=== PATIENT | male | born 1935 | race Caucasian/White ===

== ENCOUNTER 2017-06-10 20:50 | Observation (INO) | payer MEDICARE, BC ==
[2017-06-10 21:49] LABS: #Basophils 0.1 thou/uL (0.0-0.2); #Lymphocytes 2.7 thou/uL (1.20-3.40); #Monocytes 0.8 thou/uL (0.11-0.59); #Neutrophils 11.6 thou/uL (1.40-6.50); %Basophils 0.4 % (0.0-1.0); %Eosinophils 0.3 % (0.0-10.0); %Lymphocytes 17.6 % (21.0-51.0); %Monocytes 5.2 % (0.0-10.0); Hematocrit 46.6 % (42.0-52.0); Mean Platelet Volume 7.4 fL (7.4-10.4); Red Blood Cell (RBC) Count 4.91 mill/uL (4.70-6.10); White Blood Cell (WBC) Count 15.1 thou/uL (4.8-10.8)
[2017-06-10 22:13] LABS: ALT (SGPT) 13 U/L (8-55); AST (SGOT) 13 U/L (5-34); Alkaline Phosphatase 49 U/L (40-150); Anion Gap 17 mmol/L (10-20); BUN (Urea Nitrogen) 18 mg/dL (8.4-25.7); Bilirubin, Total 0.5 mg/dL (0.2-1.2); CK (CPK) 34 U/L (30-200); Calc. Creatinine Clearance 0 mL/min (70-130); Calcium 9.5 mg/dL (7.8-10.44); Carbon Dioxide 23 mmol/L (23-31); Chloride 99 mmol/L (98-107); Estimated GFR-MDRD 75; Globulin 3.3 g/dL (2.4-3.5); Protein, Total 7.4 g/dL (5.8-8.1)
[2017-06-10 22:17] LABS: Troponin I Less than 0.010 ng/mL (< 0.028)
--- NOTE | 2017-06-10 22:17 | RAD ---
TWO VIEWS OF THE CHEST: 06/10/17 COMPARISON: 07/15/13 HISTORY: Shortness of breath and nausea. FINDINGS: Two views of the chest show normal sized cardiomediastinal silhouette. There is no evidence of conso lidation, mass, or pleural effusion. Degenerative changes are seen in the spine. IMPRESSION: No evidence of acute cardiopulmonary disease. POS: [facility]
[2017-06-11] MEDS ORDERED: Ondansetron HCl/PF 4 MG/2 ML Vial IVP PRN (00:23)
[2017-06-11] MEDS ORDERED: Ondansetron ODT 4 MG TAB SL PRN (00:23)
[2017-06-11] MEDS ORDERED: Melatonin 3 MG TAB PO SCH (00:30)
[2017-06-11] MEDS ORDERED: Lorazepam 2 MG/ML VIAL SLOW IVP PRN (00:32)
[2017-06-11] MEDS ORDERED: Milk Of Magnesia 30 ML UDCUP PO PRN (00:32)
[2017-06-11] MEDS ORDERED: Mag-Al 1200 mg/1200 mg/30 ML UDCUP PO PRN (00:32)
[2017-06-11] MEDS ORDERED: Acetaminophen 325 MG TAB PO PRN (00:32)
[2017-06-11] MEDS ORDERED: Lorazepam 0.5 MG TAB PO PRN (00:35)
[2017-06-11 01:08] LABS: Troponin I Less than 0.010 ng/mL (< 0.028)
--- NOTE | 2017-06-11 05:36 | HP ---
PRIMARY CARE PHYSICIAN: Dr. Kennedy. CHIEF COMPLAINT: Chest pain. HISTORY OF PRESENT ILLNESS: Mr. Noel is an 81-year-old gentleman that has a history of hypertensi on and obstructive sleep apnea. He also has a history of bipolar disorder as well. The patient him self says that on Wednesday evening, he began getting short of breath after eating dinner. He says edmond t this lasted for about 3 hours. He did feel a little bit dizzy and nauseated. His had taken him to see Dr. Kennedy in her office and she had prescribed an inhaler, some cough Perles as well as antibiotics and steroids this was on last Wednesday a week ago. He took these medications and she say s that the cough got better and the cough was nonproductive, but he still complains of the shortness of breath off and on. He says that on today, he seemed very agitated and he just recently got rele ased from [facility] and she says that earlier this evening he said he just could not cat ch his breath and he was having trouble breathing. She says when she looked better at him, he looke d okay and like he was moving air, but she did not know anything else to do but to bring him to the hospital. She suspects that he may be having an anxiety attack. He denies having any chest pain th rough all of this. No fevers or chills, etc., When I came to see him, he is lying flat on the stre tcher. He looks very comfortable and currently is not having any shortness of breath or any symptom s at this time. REVIEW OF SYSTEMS: Constitutional: There are no fevers, chills, no night sweats, no weight loss. HEENT: No headache, no dizziness, no visual changes, no sore throat, rhinorrhea, neck pain, no kimberly opathy. Pulmonary: As the history of present illness. Cardiovascular: He denies any chest pain. He had shortness of breath in the evening times, but there was no PND, no orthopnea, no relationshi p to exertion. No lower extremity edema. Gastrointestinal: No abdominal pain, no nausea, no vomit ing, no change in bowels. Genitourinary: No urinary frequency, hematuria, no hesitancy. Neurologi c: No focal weakness, numbness, no seizures. Psychiatric: No symptoms of anxiety or depression. Skin and integument: No skin changes. No rash. PAST MEDICAL HISTORY: Significant for obstructive sleep apnea, hypertension, gastroesophageal reflu x disease, BPH, and bipolar disorder. PAST SURGICAL HISTORY: He had a cardiac catheterization. ALLERGIES: SULFA, PENICILLIN, INFLUENZA VACCINE, and STATINS. FAMILY HISTORY: Significant for coronary artery disease. SOCIAL HISTORY: He is . He lives with his . He is a nonsmoker, nondrinker. CURRENT MEDICATIONS: Include famotidine 20 mg daily, potassium chloride 20 mEq daily, Flomax 0.4 mg daily, vitamin E, calcium carbonate 500 mg twice a daily, lisinopril 10 mg daily, levothyroxine 75 mcg daily, lithium 300 mg in the day and 150 mg at bedtime, BuSpar 10 mg daily, iron sulfate 325 mg at bedtime, finasteride 5 mg daily, Haldol 1 mg in the day and 2 mg at bedtime, and amlodipine 10 mg daily. PHYSICAL EXAMINATION: GENERAL: He is alert and oriented. He appears to be in no acute distress. VITAL SIGNS: His blood pressure was 126/70, his heart rate is 86, respiratory rate is 16, and he is afebrile. HEENT: Pupils are equal, round, and reactive. Extraocular muscles are intact. Sclerae are anicter ic. Throat no erythema, no exudates. NECK: No adenopathy, no bruits. LUNGS: He has got some mild rhonchi, is very faint in few. CARDIOVASCULAR: Normal S1, S2. I did not appreciate an S3 or S4. No murmurs, clicks, or rubs. ABDOMEN: Soft, it is nontender, nondistended. Positive for bowel sounds. There is no rebound, no guarding. EXTREMITIES: There is no clubbing, cyanosis, no edema. NEUROLOGICALLY: The exam is nonfocal. SIGNIFICANT LABORATORY: White blood cell count 15.1, hemoglobin 15.2, hematocrit is 46.6, platelet count is 344. Sodium 135, potassium 4.3, chloride is 99, CO2 is 23, BUN of 18, creatinine 0.96, glu cose is 126. D-dimer is less than 0.021. [place] level was 0.342. ASSESSMENT AND PLAN: This is an 81-year-old gentleman that presents to the emergency room with shor tness of breath. He does not have any objective complaints now or any subjective complaints now and clinically, he appears well. I suspect that his may be correct by given his psychiatric histo ry. This could be an anxiety attack that caused his shortness of breath. He is currently completel y asymptomatic. His D-dimer was negative. His chest x-ray is clear and he did not have any chest p ain. We will monitor him in observation overnight, trend his cardiac enzymes, monitor his vital sig ns and if all is stable in the morning, then I suspect he can be discharged home and he may need to talk with his psychiatrist with regards to the treatment of anxiety. The leukocytosis seen on the C BC is likely related to recent steroid use.
[2017-06-11 06:07] LABS: #Basophils 0.1 thou/uL (0.0-0.2); #Eosinphils 0.2 thou/uL (0.0-0.7); #Lymphocytes 5.1 thou/uL (1.20-3.40); #Monocytes 1.1 thou/uL (0.11-0.59); #Neutrophils 10.1 thou/uL (1.40-6.50); %Basophils 0.5 % (0.0-1.0); %Lymphocytes 30.8 % (21.0-51.0); %Monocytes 6.6 % (0.0-10.0); Hematocrit 45.5 % (42.0-52.0); Mean Platelet Volume 8.3 fL (7.4-10.4); Red Blood Cell (RBC) Count 4.77 mill/uL (4.70-6.10); White Blood Cell (WBC) Count 16.6 thou/uL (4.8-10.8)
[2017-06-11 06:29] LABS: Troponin I Less than 0.010 ng/mL (< 0.028)
[2017-06-11 06:40] LABS: Anion Gap 16 mmol/L (10-20); BUN (Urea Nitrogen) 15 mg/dL (8.4-25.7); Calc. Creatinine Clearance 92 mL/min (70-130); Calcium 9.6 mg/dL (7.8-10.44); Carbon Dioxide 23 mmol/L (23-31); Chloride 98 mmol/L (98-107); Cholesterol 207 mg/dl (< 200 Desired); Estimated GFR-MDRD Greater than 90; LDL Cholesterol, Calculated 134 mg/dL
[2017-06-11] MEDS: Enoxaparin Sodium 40 MG/0.4 ML SYRINGE SC SCH (08:32)
[2017-06-11] MEDS: Tamsulosin HCl 0.4 MG CAP PO SCH (08:32)
[2017-06-11] MEDS: Ondansetron HCl/PF 4 MG/2 ML Vial SLOW IVP PRN (12:57)
--- NOTE | 2017-06-11 14:52 | PDOC.PN ---
- Subjective Encounter Start Date: 06/11/17 Encounter Start Time: 14:45 Subjective: f/u for ? dyspnea of unclear etiology. All studies negative and -: presentation likely consistent with anxiety disorder. - Objective Resuscitation Status: Resuscitation Status FULL:Full Resuscitation MAR Reviewed: Yes Vital Signs & Weight: Vital Signs (12 hours) Temp Pulse Resp BP BP Pulse Ox 06/11/17 11:25 98.5 F 86 18 119/64 93 L 06/11/17 08:30 97.8 F 84 18 127/68 93 L 06/11/17 04:30 98.7 F 90 20 130/67 94 L Weight Weight 197 lb 11.2 oz I&O: 06/10/17 06/11/17 06/12/17 06:59 06:59 06:59 Output Total 300 Balance -300 Result Diagrams: 06/11/17 04:18 06/11/17 04:18 Additional Labs: Laboratory Tests 06/10/17 06/10/17 06/11/17 21:41 22:10 00:32 Troponin I Less than 0.010 Less than 0.010 Free T4 TSH 3rd Generation Richardson 0.342 L 06/11/17 06/11/17 04:18 04:18 Troponin I Less than 0.010 Free T4 1.33 TSH 3rd Generation 1.2951 Richardson Radiology Reviewed by me: Yes (PCXR - no acute process) EKG Reviewed by me: Yes (Tele - SR in 90's) Phys Exam - Physical Examination Constitutional: NAD HEENT: PERRLA, oral pharynx no lesions Neck: no JVD, supple Respiratory: no wheezing Cardiovascular: RRR Gastrointestinal: soft, non-tender, no distention, positive bowel sounds Musculoskeletal: no edema, pulses present Neurological: normal sensation, moves all 4 limbs Psychiatric: A&O x 3 Skin: normal turgor, cap refill <2 seconds Dx/Plan (1) Anxiety disorder Code(s): F41.9 - ANXIETY DISORDER, UNSPECIFIED Status: Chronic Qualifiers: Anxiety disorder type: generalized anxiety disorder Qualified Code(s): F41.1 - Generalized anxiety disorder (2) Bipolar disorder (manic depression) Code(s): F31.9 - BIPOLAR DISORDER, UNSPECIFIED Status: Chronic Comment: Continue home regimen of Richardson, Buspar (3) Dyspnea Code(s): R06.00 - DYSPNEA, UNSPECIFIED Status: Acute Comment: Likely due to anxiety disorder (4) Hypothyroidism Code(s): E03.9 - HYPOTHYROIDISM, UNSPECIFIED Status: Chronic Comment: Levothyroxine 75mcg daily (5) HTN (hypertension) Code(s): I10 - ESSENTIAL (PRIMARY) HYPERTENSION Status: Chronic - Plan plan discussed w/ family, PT/OT, DVT proph w/SCDs Stable overall -: Likely presentation mainly anxiety driven -: PT consult for functional assessment -: Continue home Richardson and Buspar -: Anticipate d/c in am * .
[2017-06-11] MEDS: busPIRone HCl 10 MG TAB PO SCH ×2 (15:51→20:55)
[2017-06-11] MEDS ORDERED: Haloperidol 1 MG TAB PO SCH (21:00)
[2017-06-11] MEDS ORDERED: Lithium Carbonate 150 MG CAP PO SCH (21:00)
[2017-06-12] MEDS: Ondansetron HCl/PF 4 MG/2 ML Vial SLOW IVP PRN ×2 (01:29→07:40)
[2017-06-12] MEDS ORDERED: Levothyroxine Sodium 75 MCG TAB PO SCH (06:00)
[2017-06-12 06:17] VITALS: BMI 30.7
[2017-06-12] MEDS ORDERED: Ferrous Sulfate 325 MG TAB PO SCH (08:00)
[2017-06-12] MEDS ORDERED: Potassium Chloride 20 MEQ TAB PO SCH (08:00)
[2017-06-12] MEDS ORDERED: Lisinopril 10 MG TAB PO SCH (09:00)
[2017-06-12] MEDS ORDERED: Finasteride 5 MG TAB PO SCH (09:00)
[2017-06-12] MEDS ORDERED: Lithium Carbonate 150 MG CAP PO SCH (09:00)
[2017-06-12] MEDS ORDERED: Haloperidol 1 MG TAB PO SCH (09:00)
[2017-06-12] MEDS ORDERED: Multivit, Therapeutic 1 TAB PO SCH (09:00)
[2017-06-12] MEDS: busPIRone HCl 10 MG TAB PO SCH (10:07)
[2017-06-12] MEDS: Tamsulosin HCl 0.4 MG CAP PO SCH (10:08)
[2017-06-12] MEDS: Enoxaparin Sodium 40 MG/0.4 ML SYRINGE SC SCH (10:08)
[2017-06-12 11:30] VITALS: BP 117/83; TEMP 98.5
--- NOTE | 2017-06-12 15:48 | DIS ---
DATE OF ADMISSION: 06/10/2017 DATE OF DISCHARGE: 06/12/2017 DISCHARGE DIAGNOSES: 1. Generalized anxiety disorder. 2. Bipolar disorder. 3. Dyspnea secondary to anxiety. 4. Hypothyroidism, stable. 5. Hypertension, stable. CONSULTATIONS: None. PERTINENT LABORATORY DATA AND X-RAY FINDINGS: Basic metabolic profile within normal limits. LFTs w ithin normal limits. Troponin I negative x3. Total cholesterol 207, triglycerides 89, HDL 55, LDL 134. TSH 1.3, free T4 of 1.33. CBC showed a white blood cell count ranging between 15.1-16.6. Lit hium level 0.342. Portable chest x-ray dated 06/10/2017 showed no acute cardiopulmonary process. HOSPITAL COURSE: Patient was observed on the telemetry unit after initially presenting with questio nable chest pain and shortness of breath. Patient underwent an extensive evaluation including metab olic screening, essentially all negative. Patient was noted with mild leukocytosis secondarily to r ecent prescription for prednisone. Telemetry monitoring showed sinus mechanism without evidence of acute arrhythmia or dysrhythmia, and patient remained clinically stable throughout the hospital cour se. Patient's presentation consistent with anxiety disorder and may need additional evaluation on a n ongoing basis as an outpatient. Overall, patient remained clinically stable and ready for dischar on 06/12/2017. DISCHARGE MEDICATIONS: 1. Calcium carbonate 500 mg 1 tab p.o. daily. 2. Pepcid 20 mg 1 tab p.o. daily. 3. Ferrous sulfate 325 mg p.o. daily. 4. Finasteride 5 mg one tablet p.o. daily. 5. Haldol 1 mg p.o. q.a.m. and 2 mg p.o. at bedtime. 6. Levothyroxine 75 mcg 1 tab p.o. daily. 7. Lisinopril 10 mg 1 tab p.o. daily. 8. [place] carbonate 300 mg p.o. q.a.m. and 150 mg p.o. at bedtime. 9. Multivitamin 1 tab p.o. daily. 10. K-Dur 20 mEq one tab p.o. daily. 11. Flomax 0.4 mg 1 tab p.o. daily. 12. Amlodipine 10 mg one tab p.o. daily. 13. BuSpar 10 mg 1 tab p.o. t.i.d. FOLLOWUP: Patient will follow with Dr. Rhonda Kennedy within 7 days of discharge. CONDITION ON DISCHARGE: Fair. ACTIVITY: Ad fabrice. DIET: Heart healthy. CODE STATUS: FULL. DISPOSITION: Home on 06/12/2017.
== END 2017-06-12 14:22 | disposition home or self-care (01) ==
LOC: ERS 20:50 → 2NO 23:00
PROVIDERS: ADMIT Internal Medicine; ATTEND Internal Medicine
DX: F41.1 Generalized anxiety disorder (principal); R06.00 Dyspnea, unspecified; F31.9 Bipolar disorder, unspecified; E03.9 Hypothyroidism, unspecified; I10 Essential (primary) hypertension; G47.33 Obstructive sleep apnea (adult) (pediatric); K21.9 Gastro-esophageal reflux disease without esophagitis; N40.0 Benign prostatic hyperplasia without lower urinary tract symptoms; Z88.2 Allergy status to sulfonamides; Z88.0 Allergy status to penicillin; Z88.8 Allergy status to other drugs, medicaments and biological substances; Z79.899 Other long term (current) drug therapy
CPT/HCPCS: 71020; 80048; 80053; 80061; 80178; 82550; 82553; 83690; 84439; 84443; 84484 ×3; 85025 ×2; 85379; 93005; 96372 ×2; 96374; 96376 ×2; 99285; G0378; G8978; G8979; G8980; 36415; A4216; J1650; J2405

== ENCOUNTER 2017-07-07 07:15 | Emergency (ER) | payer MEDICARE, BC ==
[2017-07-07] MEDS ORDERED: Morphine Sulfate 2 MG/ML SYRINGE ONE (07:53)
[2017-07-07] MEDS ORDERED: Ondansetron HCl/PF 4 MG/2 ML Vial ONE (07:53)
[2017-07-07 07:57] LABS: #Eosinphils 0.3 thou/uL (0.0-0.7); #Lymphocytes 2.8 thou/uL (1.20-3.40); #Monocytes 0.9 thou/uL (0.11-0.59); %Basophils 0.5 % (0.0-1.0); %Eosinophils 3.7 % (0.0-10.0); %Lymphocytes 31.1 % (21.0-51.0); %Monocytes 9.5 % (0.0-10.0); Hematocrit 45.8 % (42.0-52.0); Mean Platelet Volume 7.6 fL (7.4-10.4); Red Blood Cell (RBC) Count 4.86 mill/uL (4.70-6.10)
[2017-07-07 08:21] LABS: ALT (SGPT) 10 U/L (8-55); AST (SGOT) 12 U/L (5-34); Alkaline Phosphatase 45 U/L (40-150); Anion Gap 12 mmol/L (10-20); BUN (Urea Nitrogen) 12 mg/dL (8.4-25.7); Bilirubin, Total 0.7 mg/dL (0.2-1.2); Calc. Creatinine Clearance 0 mL/min (70-130); Calcium 9.4 mg/dL (7.8-10.44); Carbon Dioxide 26 mmol/L (23-31); Chloride 101 mmol/L (98-107); Estimated GFR-MDRD 84; Lipase 18 U/L (8-78); Protein, Total 7.1 g/dL (5.8-8.1)
--- NOTE | 2017-07-07 09:47 | CT ---
CT ABDOMEN WITH IV CONTRAST CT PELVIS WITH IV CONTRAST: HISTORY: Intermittent abdominal pain that began 1 day ago. Numbness and cramping. COMPARISON: None available. FINDINGS: The dome of the liver is obscured from view on this exam. There is bibasilar atelectasis. There is mass-like area of increased density seen posteriorly within the fundus of the gallbladder l umen with this area measuring approximately 2.2 cm. This could be related to gallbladder calculi la yering in the fundus of the gallbladder and/or sludge. A mass could not be entirely excluded, and a gallbladder ultrasound is recommended for further evaluation. The visualized portions of the liver, spleen, pancreas, bilateral adrenal glands, kidneys, opacified bowel, and urinary bladder demonstrate a normal CT appearance. The appendix is normal in caliber. A few scattered colonic diverticula are seen in the colon without CT evidence of diverticulitis. Small fat-containing bilateral inguinal hernias are seen. Mild degenerative changes are noted in the spine. IMPRESSION: Area of increased density within the gallbladder fundus. This has a mass-like appearance but may be related to layering gallbladder calculi and/or tumefactive sludge. Gallbladder ultrasound is recom mended for further evaluation. POS: [facility]
[2017-07-07 10:03] LABS: Bilirubin Negative (Negative); Blood, Urine Negative (Negative); Glucose, Urine (Dipstick) Negative (Negative); Ketone, Urine Negative (Negative); Nitrite Negative (Negative); Protein, Urine (Dipstick) Negative (Neg-Trace); Urobilinogen 0.2 mg/dL (0.2-1.0)
--- NOTE | 2017-07-07 11:55 | ULT ---
GALLBLADDER ULTRASOUND: HISTORY: Abnormal CT. Abdominal pain. History of gallbladder calculi. COMPARISON: 07/01/2013 CORRELATION: Abdomen and pelvis CT from 07/07/2017. TECHNIQUE: Utilizing a Multi-Hertz transducer, sonographic imaging of the right upper quadrant is performed in the longitudinal and transverse plane. FINDINGS: The hepatic parenchyma has a normal echotexture. No hepatic masses or intrahepatic biliary dilatati on. The contour of the hepatic margin is maintained. The right pedicle measures 16.6 cm. Limited evaluation of the right kidney. Grossly, no hydronephrosis. At the gallbladder fundus, there appears to be a combination of hypoechoic and increased echogenic f oci. This collection measures approximately 1.8 cm. When the patient is rolled into the decubitus position, the sludge and stone do move. An obvious intraluminal mass is not appreciated. If there is concern, MRI can be performed. The pancreas is obscured by bowel gas. The main portal vein is patent. Appropriate directional flow. IMPRESSION: Sonographic evidence of sludge and stones within the lumen of the gallbladder. In the transverse di mension, this collection has a mass-like appearance, but, in the left lateral decubitus position, th e sludge and stones do appear to be moved. If there is still concern for a mass within the lumen of the gallbladder, consider MRI POS: [facility]
[2017-07-07] MEDS ORDERED: ISOVUE-370 76%-LOCM 1 ML ONE (13:27)
[2017-07-07] MEDS ORDERED: Iopamidol 370 76% 50 ML VIAL FS ONE (13:27)
== END 2017-07-07 12:00 | disposition home or self-care (01) ==
LOC: ERS 07:15
DX: K80.20 Calculus of gallbladder without cholecystitis without obstruction (principal); E03.9 Hypothyroidism, unspecified; K21.9 Gastro-esophageal reflux disease without esophagitis; I10 Essential (primary) hypertension; N40.0 Benign prostatic hyperplasia without lower urinary tract symptoms; D64.9 Anemia, unspecified; F31.9 Bipolar disorder, unspecified; Z79.899 Other long term (current) drug therapy
CPT/HCPCS: 74177; 76705; 80053; 81003; 83690; 85025; 96374; 96375; J2270; J2405

== ENCOUNTER 2017-07-08 12:32 | Outpatient (CLI) | payer MEDICARE, BC | END 2017-07-08 12:33 | disposition home or self-care (01) | LOC: LABBT 12:32 | PROVIDERS: ATTEND Specialist | DX: Z01.818 Encounter for other preprocedural examination (principal); K80.10 Calculus of gallbladder with chronic cholecystitis without obstruction ==

== ENCOUNTER 2017-07-09 09:27 | Day surgery (SDC) | payer MEDICARE, BC ==
[2017-07-08 12:57] VITALS: BMI 31.1
--- NOTE | 2017-07-09 05:42 | HP ---
HISTORY OF PRESENT ILLNESS: Konrad Noel is an 81-year-old male patient who presented to the emergen cy room on 07/07/2017 with epigastric right upper quadrant pain associated with nausea occurring for several months intermittently worsening. He has suffered anorexia. Gallbladder ultrasound reveale d gallstones and sludge, and normal bile duct caliber. On 07/07/2017, laboratories, CBC and compreh ensive metabolic profile unremarkable, normal liver function tests and lipase. Plan is for laparosc opic cholecystectomy. Risks of infection, bleeding, reoperation explained and he consents. The patient has seen Dr. Luke recently. He has been taken off his Flomax. He has been hospi talized at [facility] and thought to have bipolar illness or anxiety, but since has been taken off lithium and Haldol. He is treated for hypertension and BPH. He has never had an y cardiac problems. He has had a colonoscopy in the past. 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 PAST SURGICAL HISTORY: Tonsillectomy, adenoidectomy. REVIEW OF SYSTEMS: Ten-point noncontributory. MEDICATIONS: Finasteride 5 mg a day, Flomax 0.4 mg a day, buspirone 10 mg t.i.d. His levothyroxine has been discontinued. Amlodipine 10 mg a day, lisinopril 10 mg a day. PAST MEDICAL HISTORY: Hypertension, gastroesophageal reflux disease, hearing impaired, Parkinson's, BPH, depression. He has been diagnosed dementia with behavioral disturbance. He does not have bip olar, anxiety disorder, but taken off his medications as later consideration felt this was not an is marques. ALLERGIES: PENICILLIN, STATIN DRUGS, BACTRIM, COQ10, LITHIUM. PHYSICAL EXAMINATION: VITAL SIGNS: Weight 200 pounds, height 64 inches, 33 BMI, blood pressure 115/81, heart rate 81, tem perature 98.8 degrees. HEAD, EYES, EARS, NOSE AND THROAT: Unremarkable. Sclerae nonicteric. SKIN: Nonjaundiced. LUNGS: Clear to auscultation. No wheezing. CARDIAC: Regular rate and rhythm without murmur or gallop. ABDOMEN: Soft, nontender, no masses. Mild tenderness in his right upper quadrant. EXTREMITIES: Unremarkable. ASSESSMENT AND PLAN: 1. Symptomatic cholelithiasis. Plan laparoscopic video cholecystectomy. Risks of infection, bleed ing, visceral and biliary injury, possibly open procedure discussed and consents. 2. Dementia. 3. Hypertension. 4. Benign prostatic hypertrophy.
[2017-07-09] MEDS ORDERED: Levofloxacin 500 mg/D5W 100 ml Premix Bag ONE (09:58)
[2017-07-09] MEDS ORDERED: Ketorolac Tromethamine 30 MG/ML VIAL ONE (09:58)
[2017-07-09] MEDS ORDERED: Bupivacaine 0.25% HCL 30 ML VIAL ONE (11:32)
[2017-07-09] MEDS ORDERED: Lidocaine 2% w/Epinephrine 1:200K 20 ML VIAL ONE (11:32)
[2017-07-09] MEDS ORDERED: Fentanyl 250 MCG/5 ML VIAL ONE (11:39)
[2017-07-09] MEDS ORDERED: Ondansetron HCl/PF 4 MG/2 ML Vial ONE (12:04)
[2017-07-09] MEDS ORDERED: Propofol 200 MG/20 ML VIAL ONE (12:04)
[2017-07-09] MEDS ORDERED: Dexamethasone 20 MG/5 ML VIAL ONE (12:04)
[2017-07-09] MEDS ORDERED: Lidocaine 1% PF 5 ML VIAL ONE (12:04)
[2017-07-09] MEDS ORDERED: Glycopyrrolate 0.2 MG/ML 5 ML SYRINGE ONE (12:04)
[2017-07-09] MEDS ORDERED: Fentanyl 100 MCG/2 ML VIAL ONE ×2 (13:15→13:31)
--- NOTE | 2017-07-09 13:49 | OP ---
DATE OF PROCEDURE: 07/09/2017 PREOPERATIVE DIAGNOSIS: Chronic cholecystitis, cholelithiasis. POSTOPERATIVE DIAGNOSIS: Chronic cholecystitis, cholelithiasis. PROCEDURE: Laparoscopic video cholecystectomy. SURGEON: Dr. Hermes Tan ANESTHESIA: General. Local 0.5% Marcaine again, 30 mL, mixed with 2% Xylocaine with epinephrine 20 mL. PROCEDURE IN DETAIL: The patient was taken to the operating room where under general anesthesia, ab domen was clipped of hair, prepared with ChloraPrep, draped in routine fashion. Local anesthetic in filtrated into skin and subcutaneous tissue about the operative sites. Infraumbilical incision made and pneumoperitoneum to 15 mmHg obtained with the Veress needle, replacing it with a 5 port. Video laparoscope inserted. Right subxiphoid incision made and 11 port placed. Right subcostal incision made mid clavicular anterior axillary lines and 5 ports placed. Liver appeared to be normal. Omen hilaria stuck to the liver, taken down with cautery, identifying the fundus of the gallbladder, grasping it and reflecting it cephalad, infundibulum grasped and reflected laterally. Cystic artery and lopez t dissected free. Critical view obtained 2/3 cystic plate dissection and cystic artery and duct biju coral clipped proximally, divided, and gallbladder dissected free from the liver bed obtaining good he mostasis prior to division of final peritoneal attachments. Gallbladder and contents and small ston es removed and submitted to Pathology. Good hemostasis ensured with the cautery. Irrigant and pneu moperitoneum evacuated. All instruments removed and all skin incisions approximated with interrupte d subdermal 4-0 Monocryl and DermaGlue applied.
== END 2017-07-09 14:55 | disposition home or self-care (01) ==
LOC: SDC 09:27
PROVIDERS: ATTEND Specialist
PROC: 0FT44ZZ Resection of Gallbladder, Percutaneous Endoscopic Approach (ICD-10-PCS; principal; 2017-07-09)
DX: K80.10 Calculus of gallbladder with chronic cholecystitis without obstruction (principal); I10 Essential (primary) hypertension; K21.9 Gastro-esophageal reflux disease without esophagitis; G20 Parkinson's disease; N40.0 Benign prostatic hyperplasia without lower urinary tract symptoms; F03.91 Unspecified dementia, unspecified severity, with behavioral disturbance; Z88.0 Allergy status to penicillin; Z88.1 Allergy status to other antibiotic agents; Z88.2 Allergy status to sulfonamides; Z88.8 Allergy status to other drugs, medicaments and biological substances; Z79.899 Other long term (current) drug therapy; Z90.89 Acquired absence of other organs
CPT/HCPCS: 88304; 96374; J0131; J1100; J1885; J1956; J2001; J2405; J2704; J3010; S0020

== ENCOUNTER 2018-03-01 14:31 | Outpatient (CLI) | payer MEDICARE, BC | END 2018-03-01 14:32 | disposition home or self-care (01) | LOC: BICRAD 14:31 | PROVIDERS: ATTEND Family Medicine | DX: R05 Cough (principal); R06.02 Shortness of breath | CPT/HCPCS: 71046 ==

== ENCOUNTER 2018-08-24 14:57 | Outpatient (CLI) | payer MEDICARE, BC ==
--- NOTE | 2018-08-24 17:54 | CT ---
CT ABDOMEN WITH AND WITHOUT CONTRAST CT PELVIS WITH AND WITHOUT CONTRAST: (CT urogram) 08/24/18 HISTORY: 82-year-old male with hematuria. COMPARISON: Standard single phase CT with contrast of 07/07/17. TECHNIQUE: Precontrast scan, nephrographic/venous phase scan, and pyelographic/excretory phase scan, of the enti re abdomen and pelvis performed. Coronal reconstructions of excretory/pyelographic phase scan. FINDINGS: Again noted is the elevated right hemidiaphragm. There is chronic subsegmental atelectasis adjacent t o the elevated right hemidiaphragm in the right lower lobe. There are no renal, ureteral, or bladder calculi. Numerous tiny cellules throughout the mucosal surface of the urinary bladder as demonstrated on the delayed scan images, without significant bladder wall thickening, and with small bladder volu me at the time of this exam (smaller than at the time of the previous scan). No obvious neoplastic tu mor mass identified in the bladder lumen. No hydroureteronephrosis bilaterally. No moderate sized or large solid or cystic renal mass lesion identified. Bilateral nephrograms are symmetrical and normal. Atherosclerotic calcification without aneurysm of abdominal aorta and iliac arteries. Cholecystectomy clips in gallbladder fossa. No evidence of acute appendicitis. Other than the superior displacement of the liver due to elevated right hemidiaphragm, no other abnormality is identified involving the li kat, pancreas, adrenals, or spleen. Numerous diverticula throughout the descending colon and sigmoid colon without definite evidence of diverticulitis. No ascites or pneumoperitoneum. No small bowel dil ation. No intra-abdominal or intrapelvic lymphadenopathy. No destructive osseous lesion identified. T he prostate gland is not significantly enlarged. IMPRESSION: 1. Diffuse irregularity of the mucosal lining of the urinary bladder suggestive of a cystitis, e ither acute or chronic. 2. No significant renal abnormality identified. 3. Colonic diverticulosis. 4. Elevated right hemidiaphragm. 5. Status post cholecystectomy. POS: [facility]
== END 2018-08-24 14:58 | disposition home or self-care (01) ==
LOC: BICCT 14:57
PROVIDERS: ATTEND Urology
DX: R31.29 Other microscopic hematuria (principal); N40.1 Benign prostatic hyperplasia with lower urinary tract symptoms; N32.89 Other specified disorders of bladder; K57.30 Diverticulosis of large intestine without perforation or abscess without bleeding; Q79.1 Other congenital malformations of diaphragm; Z90.49 Acquired absence of other specified parts of digestive tract; Z87.448 Personal history of other diseases of urinary system
CPT/HCPCS: 74178; 82565

== ENCOUNTER 2018-08-30 18:29 | Emergency (ER) | payer MEDICARE, BC ==
[2018-08-30 19:09] LABS: #Basophils 0.1 thou/uL (0.0-0.2); #Eosinphils 0.3 thou/uL (0.0-0.7); #Lymphocytes 3.1 thou/uL (1.20-3.40); #Neutrophils 6.3 thou/uL (1.40-6.50); %Basophils 1.3 % (0.0-1.0); %Eosinophils 2.4 % (0.0-10.0); %Lymphocytes 28.8 % (21.0-51.0); %Neutrophils 58.5 % (42.0-75.0); Hemoglobin 15.6 g/dL (14.0-18.0); Mean Corpuscular HGB CONC 33.8 g/dL (32.0-36.0); Mean Corpuscular Hemoglobin 32.1 pg (27.0-31.0); Mean Corpuscular Volume 94.8 fL (78.0-98.0); Mean Platelet Volume 9.8 fL (7.4-10.4); Platelet Count 210 thou/uL (130-400); RBC Distribution Width 12.2 % (11.5-14.5); Red Blood Cell (RBC) Count 4.87 mill/uL (4.70-6.10); White Blood Cell (WBC) Count 10.8 thou/uL (4.8-10.8)
[2018-08-30 19:32] LABS: ALT (SGPT) 42 U/L (8-55); AST (SGOT) 58 U/L (5-34); Albumin 4.3 g/dL (3.4-4.8); Alkaline Phosphatase 74 U/L (40-150); Anion Gap 15 mmol/L (10-20); BUN (Urea Nitrogen) 15 mg/dL (8.4-25.7); Bilirubin, Total 0.8 mg/dL (0.2-1.2); CK (CPK) 55 U/L (30-200); Calc. Creatinine Clearance 0 mL/min (70-130); Calcium 9.6 mg/dL (7.8-10.44); Carbon Dioxide 24 mmol/L (23-31); Chloride 102 mmol/L (98-107); Estimated GFR-MDRD 69; Globulin 3.7 g/dL (2.4-3.5); Glucose 161 mg/dL (83-110); Potassium 4.1 mmol/L (3.5-5.1); Sodium 137 mmol/L (136-145)
[2018-08-30 21:03] LABS: Bilirubin Negative (Negative); Blood, Urine Negative (Negative); Clarity CLEAR (Clear); Glucose, Urine (Dipstick) Negative (Negative); Leukocyte Negative (Negative); Nitrite Negative (Negative); Protein, Urine (Dipstick) Negative (Neg-Trace); Specific Gravity, Urine 1.024 (1.002-1.036)
--- NOTE | 2018-08-30 21:03 | RAD ---
UPRIGHT PORTABLE CHEST ONE VIEW: HISTORY: An 82-year-old male with a history of weakness, sleepiness, and unable to bear weight, with worsening symptoms. FINDINGS: Monitor leads overly the chest. Minimal right hemidiaphragm elevation with some minimal subsegmental atelectatic changes or chronic changes in the right base. Mild bilateral vascular congestion. No c onfluent pneumonia, overt edema, or pleural effusion. IMPRESSION: 1. Stable appearing chest. 2. No significant new process. POS: [facility]
--- NOTE | 2018-08-30 21:10 | CT ---
BRAIN CT WITHOUT IV CONTRAST: 08/30/18 HISTORY: 82-year-old male with history of hypertension and hypothyroidism. Generalized weakness, dementia. There is some bilateral atrophy and chronic white matter ischemic change. No focal mass or midline sh ift. No intra or extra-axial hemorrhage. Sinuses and mastoids are clear. IMPRESSION: Atrophy and chronic white matter ischemic changes. No mass, bleed or other acute process. Stable from 06/30/13. POS: [facility]
== END 2018-08-30 22:45 | disposition home or self-care (01) ==
LOC: ERS 18:29
DX: R53.1 Weakness (principal); R94.5 Abnormal results of liver function studies; E03.9 Hypothyroidism, unspecified; K21.9 Gastro-esophageal reflux disease without esophagitis; I10 Essential (primary) hypertension; N40.0 Benign prostatic hyperplasia without lower urinary tract symptoms; D64.9 Anemia, unspecified; F31.9 Bipolar disorder, unspecified; Z79.899 Other long term (current) drug therapy
CPT/HCPCS: 70450; 71045; 80053; 80164; 81003; 82550; 83880; 84484; 85025; 87086; 93005

== ENCOUNTER 2018-09-05 09:06 | Inpatient (IN) | payer MEDICARE, BC ==
[2018-09-05] MEDS ORDERED: Ondansetron PF 4 MG/2 ML Vial ONE ×2 (09:44→20:46)
--- NOTE | 2018-09-05 10:04 | RAD ---
LEFT HIP 2 VIEWS: Date: 09/05/18 HISTORY: Fall. Pain. COMPARISON: None. FINDINGS: There is a mildly impacted intertrochanteric fracture of the left femur. There is cortical irregulari ty of the left obturator ring. IMPRESSION: 1. Fracture left femur. 2. Mild cortical irregularity of the obturator ring involving the left superior pubic ramus. Pelvic radiograph recommended. POS: [facility]
--- NOTE | 2018-09-05 10:06 | RAD ---
CHEST 1 VIEW: Date: 09/05/18 HISTORY: Preop. COMPARISON: Radiograph dated 08/30/18. FINDINGS: Mild elevation of right hemidiaphragm. Lungs are hypoinflated with vascular crowding. Cardiac silhoue tte and mediastinal contours are similar. No acute osseous abnormality. Right upper quadrant surgical clips. IMPRESSION: No acute intrathoracic abnormality. POS: [facility]
[2018-09-05] MEDS ORDERED: Morphine 4 MG/ML VIAL ONE ×2 (10:07→10:47)
[2018-09-05 10:23] LABS: INR-International Normal Ratio 1.1; PTT 26.3 SEC (22.9-36.1); Prothrombin Time 14.2 SEC (12.0-14.7)
[2018-09-05 10:25] LABS: #Eosinphils 0.1 thou/uL (0.0-0.7); #Lymphocytes 2.4 thou/uL (1.20-3.40); #Neutrophils 8.9 thou/uL (1.40-6.50); %Basophils 0.3 % (0.0-1.0); %Eosinophils 1.1 % (0.0-10.0); %Lymphocytes 18.9 % (21.0-51.0); %Monocytes 8.1 % (0.0-10.0); %Neutrophils 71.6 % (42.0-75.0); Hemoglobin 14.2 g/dL (14.0-18.0); Mean Corpuscular Hemoglobin 30.6 pg (27.0-31.0); Mean Corpuscular Volume 92.8 fL (78.0-98.0); Mean Platelet Volume 9.5 fL (7.4-10.4); Platelet Count 206 thou/uL (130-400); RBC Distribution Width 12.1 % (11.5-14.5); Red Blood Cell (RBC) Count 4.66 mill/uL (4.70-6.10); White Blood Cell (WBC) Count 12.4 thou/uL (4.8-10.8)
[2018-09-05 10:43] LABS: ALT (SGPT) 51 U/L (8-55); AST (SGOT) 61 U/L (5-34); Alkaline Phosphatase 65 U/L (40-150); Anion Gap 19 mmol/L (10-20); BUN (Urea Nitrogen) 11 mg/dL (8.4-25.7); Calc. Creatinine Clearance 0 mL/min (70-130); Calcium 9.6 mg/dL (7.8-10.44); Carbon Dioxide 18 mmol/L (23-31); Chloride 100 mmol/L (98-107); Estimated GFR-MDRD 76; Globulin 3.5 g/dL (2.4-3.5); Glucose 164 mg/dL (83-110); Potassium 3.8 mmol/L (3.5-5.1); Protein, Total 7.5 g/dL (5.8-8.1); Sodium 133 mmol/L (136-145)
--- NOTE | 2018-09-05 10:43 | RAD ---
PELVIS ONE VIEW: History: Injury. Comparison: None. FINDINGS: There is an intertrochanteric fracture of the left femur with mild impaction. No left obturator ring fracture. Moderate vascular calcification. IMPRESSION: No displaced left obturator ring fracture is appreciated. POS: [facility]
[2018-09-05] MEDS ORDERED: Clindamycin/D5W 900 MG in Premix Bag 1 BAG IVPB SCH (11:15)
--- NOTE | 2018-09-05 12:41 | CON ---
DATE OF CONSULTATION: 09/05/2018 REQUESTING PHYSICIAN: Trauma Services. CONSULTING PHYSICIAN: Crow Jett MD REASON FOR CONSULTATION: Status post fall with left hip fracture. HISTORY OF PRESENT ILLNESS: This is an 82-year-old gentleman, who was at home today when he got up from his recliner and tripped on his blanket and fell, landing on his left side. He presented to the [facility], where x-rays revealed an isolated left hip intertrochanteric fracture. The patient denies hitting his head or losing consciousness. He denies any other injuries at the time of the fall. Family is currently at bedside. He reports pain that is worse with movement and relieved with rest. No numbness or tingling distally. We have been consulted for this reason. PAST MEDICAL HISTORY: Significant for hypothyroidism, gastroesophageal reflux disease, hypertension, benign prostatic hypertrophy, anemia, bipolar disorder, depression, and dementia. PAST SURGICAL HISTORY: Significant for tonsillectomy. SOCIAL HISTORY: The patient lives at home with his . He uses a walker to get around the house occasionally. He denies any alcohol use, tobacco use, or illicit drug use. ALLERGIES: INCLUDE LITHIUM, PENICILLINS, STATINS, SULFA, AND THE INFLUENZA VACCINE. FAMILY HISTORY: Reviewed and noncontributory. REVIEW OF SYSTEMS: Ten-point review of systems conducted and otherwise negative except for stated above. PHYSICAL EXAMINATION: VITAL SIGNS: Show vital signs of blood pressure 147/85, pulse of 90, respiratory rate of 16, temperature 98.2 Fahrenheit, and O2 saturation 93% on room air. GENERAL: The patient is awake and alert. He converses appropriately. He is in no apparent distress. Family is at bedside. HEENT: Head is normocephalic, atraumatic. NECK: Supple. Trachea midline. LUNGS: Breathing nonlabored. EXTREMITIES: The left lower extremity was evaluated. It does appear somewhat shortened. Tenderness to palpation in the trochanteric region. The patient is able to move all digits of his toes and reports sensation intact distally. Dorsalis pedis pulse 2+ and present. Remainder of extremity exam is unremarkable for other signs of injury. RADIOGRAPHIC FINDINGS: Including pelvis and hip x-rays show evidence of an intertrochanteric femur fracture on the left. There is some displacement present with this. These x-ray findings were reviewed with Dr. Jett as well as myself today. LABORATORY DATA: Shows a CBC with a white blood cell count of 12.4, hemoglobin 14.2, hematocrit 43.2, and platelet count of 206. ASSESSMENT: Left hip intertrochanteric femur fracture. PLAN: Options discussed today with the patient and his family. The patient is an ambulator at home with his . He does occasionally use a walker. They do use home health traditions therapy. In order to restore his mobility and preserve function of his hip, we would like to go forward with surgery including a DHS to the left intertrochanteric femur fracture. The patient has been n.p.o. since early this morning when he had a couple of sips of water. He has had nothing to eat today. Risks, benefits, and alternatives of surgery were discussed at length with the patient and his family today. They do verbalize understanding and are amenable to go forward with this plan of care. Postoperatively, we will have the patient screened to see if he is a candidate for rehab, if not we will plan for snf. Family is on board with this plan of care. We will plan for surgery later this afternoon. Job ID: [id number]
[2018-09-05] MEDS ORDERED: Ondansetron ODT 4 MG TAB PO PRN (12:55)
[2018-09-05] MEDS ORDERED: Dextrose 5% in Water 1,000 ML IV PRN (12:55)
[2018-09-05] MEDS ORDERED: Morphine 2 MG/ML SYRINGE SLOW IVP PRN (12:55)
[2018-09-05] MEDS ORDERED: Dextrose 50% Abboject 50 ML SYRINGE SLOW IVP PRN (12:55)
[2018-09-05] MEDS ORDERED: hydrALAZINE 20 MG/ML VIAL SLOW IVP PRN (12:55)
[2018-09-05] MEDS ORDERED: Ondansetron PF 4 MG/2 ML Vial IVP PRN (12:55)
[2018-09-05] MEDS ORDERED: Morphine 4 MG/ML VIAL SLOW IVP PRN (12:55)
[2018-09-05] MEDS ORDERED: Ketorolac Tromethamine 30 MG/ML VIAL IVP SCH (13:00)
[2018-09-05 13:03] VITALS: BMI 30.8
[2018-09-05] MEDS ORDERED: Acetaminophen 1,000 MG in Premix Bag 1 BAG IVPB SCH (13:15)
--- NOTE | 2018-09-05 14:28 | HP ---
REQUESTING PHYSICIAN: Dr. Ferrari. CONSULTATIONS: Orthopedics, Dr. Jett. HISTORY OF PRESENT ILLNESS: The patient is an 82-year-old man, who is reportedly at home when he tripped over something on his floor and landed on his left hip. The patient did not strike his head and denies any loss of consciousness. The patient actually had security cameras that recorded this and after review by the family, they noted that he accurately described not hitting his head or having a loss of consciousness. The patient was brought to the emergency department, where he underwent evaluation. On examination, he was noted to have a left intertrochanteric femur fracture, at which time, we were asked to evaluate the patient for admission and obtain Orthopedic consultation. ALLERGIES: INFLUENZA VACCINE, LITHIUM, PENICILLIN, STATINS, AND SULFA. CURRENT MEDICATIONS: Finasteride, tamsulosin, vitamin E, lisinopril, amlodipine, and CBD oil. PAST MEDICAL HISTORY: Hypothyroidism, gastroesophageal reflux disease, hypertension, benign prostatic hypertrophy, bipolar disorder, and depression. PAST SURGICAL HISTORY: Tonsillectomy. SOCIAL HISTORY: The patient denies drug, tobacco, or alcohol use. Lives at home with his family. REVIEW OF SYSTEMS: 10-point review of systems is negative except as otherwise stated. PHYSICAL EXAMINATION: VITAL SIGNS: Blood pressure 127/74, heart rate 86, respirations 15, oxygen saturation is 94% on room air, and temperature is 98.4. GENERAL: The patient is resting comfortably in bed. He is awake, alert, and conversant. Per the family, he is at his baseline. It appears that the patient may have some early dementia, but the family states this has not been specifically diagnosed. Otherwise, Herman Coma Scale is 15. HEENT: Head, normocephalic and atraumatic. EYES: Extraocular motion intact. PERRLA bilaterally. Ears are atraumatic without discharge. Oropharynx is clear. NECK: Nontender. Trachea is midline. No JVD. CHEST: Clear to auscultation with good inspiratory and expiratory effort, though it was noted at one point that the patient did have some expiratory wheezing and a cough. HEART: Regular rate and rhythm. ABDOMEN: Soft, flat, and nontender with active bowel sounds. EXTREMITIES: Neurovascularly intact x4. PELVIS: Stable. The left hip is tender palpation consistent with his fracture. BACK: By report is atraumatic and nontender. LABORATORY FINDINGS: White blood cell count 12.4, hemoglobin 14.2, hematocrit 43.2, and platelets 206. Sodium 133, potassium 3.8, chloride 100, CO2 of 18, BUN 11, creatinine 0.95, glucose 164. LFTs are unremarkable. PT 14, INR 1.1, PTT 26. RADIOGRAPHIC FINDINGS: AP chest shows no acute intrathoracic abnormality. AP pelvis shows a nondisplaced left obturator ring fracture and a fracture of the left intertrochanteric femur. Left hip x-rays show a fracture of the left femur and a mild cortical irregularity of the obturator ring involving the left superior pubic ramus. ASSESSMENT: 1. Status post ground level fall. 2. Left intertrochanteric hip fracture. 3. Questionable pubic symphysis fracture. 4. History of hypertension. 5. Pain secondary to trauma. PLAN: Plan will be to admit the patient to the surgical floor. Per discussion with Orthopedics, the plan will be for them to take the patient to the operating room today for surgical intervention. Postoperatively, the patient will have pain control, pulmonary toilet gastritis, mechanical VTE prophylaxis. The evaluation and examination of laboratory and radiographic findings were discussed with Dr. Reyes. Job ID: [id number]
[2018-09-05] MEDS: Sodium Chloride 0.9% 1,000 ML IV SCH ×2 (15:10→23:06)
[2018-09-05] MEDS: Acetaminophen 1,000 MG in Premix Bag 1 BAG IVPB SCH ×2 (17:16→23:57)
[2018-09-05] MEDS: Ketorolac Tromethamine 30 MG/ML VIAL IVP SCH ×2 (17:16→23:57)
[2018-09-05] MEDS ORDERED: Clindamycin/D5W 900 mg/50 ml Premix Bag ONE (18:59)
[2018-09-05] MEDS ORDERED: Fentanyl 100 MCG/2 ML VIAL ONE (20:21)
[2018-09-05] MEDS ORDERED: Glycopyrrolate 0.2 MG/ML 5 ML SYRINGE ONE (20:46)
[2018-09-05] MEDS ORDERED: PROPOFOL 200 MG/20 ML VIAL ONE (20:46)
[2018-09-05] MEDS ORDERED: Promethazine HCl 25 MG/ML VIAL SLOW IVP PRN (21:05)
[2018-09-05] MEDS ORDERED: Promethazine HCl 25 MG/ML VIAL IM PRN (21:05)
[2018-09-05] MEDS ORDERED: Ondansetron HCl/PF 4 MG/2 ML Vial IVP PRN (21:05)
[2018-09-05] MEDS: Famotidine 20 MG TAB PO SCH (21:55)
[2018-09-06 05:53] LABS: #Basophils 0.1 thou/uL (0.0-0.2); #Eosinphils 0.1 thou/uL (0.0-0.7); #Lymphocytes 2.4 thou/uL (1.20-3.40); #Monocytes 1.6 thou/uL (0.11-0.59); #Neutrophils 8.7 thou/uL (1.40-6.50); %Basophils 0.4 % (0.0-1.0); %Eosinophils 0.6 % (0.0-10.0); %Lymphocytes 18.6 % (21.0-51.0); %Monocytes 12.2 % (0.0-10.0); %Neutrophils 68.2 % (42.0-75.0); Hemoglobin 12.6 g/dL (14.0-18.0); Mean Corpuscular HGB CONC 33.9 g/dL (32.0-36.0); Mean Corpuscular Hemoglobin 32.1 pg (27.0-31.0); Mean Corpuscular Volume 94.7 fL (78.0-98.0); Mean Platelet Volume 9.2 fL (7.4-10.4); Platelet Count 173 thou/uL (130-400); RBC Distribution Width 12.1 % (11.5-14.5); Red Blood Cell (RBC) Count 3.93 mill/uL (4.70-6.10); White Blood Cell (WBC) Count 12.8 thou/uL (4.8-10.8)
[2018-09-06 06:15] LABS: Anion Gap 12 mmol/L (10-20); BUN (Urea Nitrogen) 14 mg/dL (8.4-25.7); Calc. Creatinine Clearance 92 mL/min (70-130); Calcium 8.8 mg/dL (7.8-10.44); Carbon Dioxide 24 mmol/L (23-31); Chloride 104 mmol/L (98-107); Estimated GFR-MDRD Greater than 90; Glucose 97 mg/dL (83-110); Potassium 3.2 mmol/L (3.5-5.1); Sodium 137 mmol/L (136-145)
[2018-09-06] MEDS: Acetaminophen 1,000 MG in Premix Bag 1 BAG IVPB SCH (06:39)
[2018-09-06] MEDS: Ketorolac Tromethamine 30 MG/ML VIAL IVP SCH (06:40)
[2018-09-06] MEDS: Famotidine 20 MG TAB PO SCH ×2 (08:15→21:51)
--- NOTE | 2018-09-06 08:49 | RAD ---
LEFT HIP TWO VIEWS: History: 82-year-old male with left hip fracture. Comparison: 09-05-18 FINDINGS: Placement of a compression screw stabilizing an intertrochanteric fracture left femur with considerab le improvement in position and alignment from the pre-reduction state. IMPRESSION: Post op compression screw placement stabilizing intertrochanteric fracture with improved position and alignment of the left hip. POS: [facility]
[2018-09-06] MEDS ORDERED: traMADol HCl 50 MG TAB PO PRN (09:10)
[2018-09-06] MEDS: Acetaminophen 500 MG TAB PO SCH ×2 (10:28→17:26)
[2018-09-06] MEDS: Aspirin 81 mg Enteric Coated Tablet PO SCH ×2 (10:28→21:51)
[2018-09-06] MEDS: traMADol HCl 50 MG TAB PO PRN ×2 (11:50→18:30)
[2018-09-06] MEDS ORDERED: Ondansetron ODT 4 MG TAB PO PRN (12:26)
--- NOTE | 2018-09-06 12:28 | EKG ---
Test Reason : Blood Pressure : / mmHG Vent. Rate : 086 BPM Atrial Rate : 086 BPM P-R Int : 210 ms QRS Dur : 082 ms QT Int : 376 ms P-R-T Axes : 008 027 048 degrees QTc Int : 449 ms Sinus rhythm with 1st degree A-V block with occasional Premature ventricular complexes Possible Left atrial enlargement Borderline ECG Confirmed by FE GALARZA, JL ([id number]), news assignment editor FLORENTIN ROA ([id number]) on 09/06/2018 12:28:05 PM Referred By: Confirmed By:JL MIRAMONTES MD
[2018-09-06] MEDS: Dicyclomine 10 MG CAP PO SCH ×4 (13:50→21:36)
--- NOTE | 2018-09-06 15:12 | PRG ---
DATE OF SERVICE: 09/06/2018 SUBJECTIVE: Mr. Noel has no complaints. His pain is controlled. He is not out of bed yet, but physical therapy is in the room. OBJECTIVE: VITAL SIGNS: He is afebrile. Vital signs are stable. GENITOURINARY: Multiple voids. Abdomen: Soft, nontender. LABORATORY DATA: White blood cell count is 12, hemoglobin 12, creatinine 0.8. ASSESSMENT: Postop hip fracture. PLAN: Physical therapy rehab screen. Job ID: [id number]
[2018-09-06] MEDS: Ibuprofen 600 MG TAB PO SCH ×2 (17:08→21:51)
[2018-09-06] MEDS: busPIRone HCl 10 MG TAB PO SCH ×2 (17:08→21:36)
[2018-09-07] MEDS: Acetaminophen 500 MG TAB PO SCH ×4 (00:55→22:37)
[2018-09-07] MEDS ORDERED: Senokot 8.6 MG TAB PO PRN (08:45)
[2018-09-07] MEDS ORDERED: Bisacodyl 5 MG TAB PO PRN (08:45)
[2018-09-07] MEDS ORDERED: Potassium Chloride 20 MEQ TAB PO SCH (08:45)
[2018-09-07] MEDS: Amlodipine 10 MG TAB PO SCH (09:05)
[2018-09-07] MEDS: busPIRone HCl 10 MG TAB PO SCH ×3 (09:06→22:37)
[2018-09-07] MEDS: Tamsulosin HCl 0.4 MG CAP PO SCH (09:07)
[2018-09-07] MEDS: Ibuprofen 600 MG TAB PO SCH ×3 (09:07→21:58)
[2018-09-07] MEDS: Aspirin 81 mg Enteric Coated Tablet PO SCH ×3 (09:08→22:39)
[2018-09-07] MEDS: Calcium Carbonate 500 MG TAB PO SCH (09:08)
[2018-09-07] MEDS: Famotidine 20 MG TAB PO SCH ×2 (09:08→21:58)
[2018-09-07] MEDS: Lisinopril 10 MG TAB PO SCH (09:09)
[2018-09-07] MEDS: Finasteride 5 MG TAB PO SCH (09:09)
[2018-09-07] MEDS ORDERED: Magnesium 2 GM/50 ML 2 GM in Premix Bag 1 BAG IVPB SCH (11:45)
--- NOTE | 2018-09-07 12:18 | PRG ---
DATE OF SERVICE: 09/07/[address] Emmanuel Reyes. SUBJECTIVE: Mr. Noel is an 82-year-old male, status post hip fracture and ORIF of the same. Rehab screen has been placed. He is working with PT, but has not worked much with them yet today. He remains hemodynamically stable. We replaced his potassium today. He is yet to have a bowel movement. Since arrival, he is tolerating a diet, yet not taking full meals. His pain is controlled. OBJECTIVE: VITAL SIGNS: Temperature is 98.6, blood pressure 113/65, heart rate is 70, respiratory rate is 18, and O2 sat is 98%. He is on a nasal cannula at 3 L. GENERAL: He is an 82-year-old male, lying in bed, in no acute distress. HEENT: Normocephalic and atraumatic. RESPIRATORY: Equal rise and fall. No respiratory distress. ABDOMEN: Soft. EXTREMITIES: He was able to move all of his extremities. NEUROLOGIC: Alert and oriented. SKIN: [place], warm and dry. LABORATORY DATA: He has no CBC from today. We will recheck his BMP and magnesium. ASSESSMENT: 1. Left intertrochanteric hip fracture, status post open reduction and internal fixation. 2. Acute traumatic pain. 3. History of hypertension. PLAN: Continue to work with PT. Replace electrolytes as needed. Repeat labs in the morning. Rehab screen has been placed. They want to see how it works with PT today, and he will either be [facility] rehab or traditional rehab. If he does well, they are willing to take him today and if not, want to wait one more day per social work. Updated patients and the patient at the bedside and answered all questions. Continue pain medicine and all other supportive care. I was called after initial dictation of this note, there was concern for aspiration of pills. No respiratory distress, but cough with taking pills. I ordered ST eval. Patient did not tolerate solids well, have clear liquid diet. Investigating further if this is new or an old finding. Job ID: [id number] MTDD
--- NOTE | 2018-09-07 15:53 | PDOC.EVN ---
Event Note - Event Note Event Note: Called reference concern for aspiration, unable to swallow pills. Ordered ST holly, they states not tolerating solids well at all, holding in mouth , clears seemed to be okay. Diet was changed. I went to the bedside to holly Mr. Noel. RN unaware of swallowing issues before today. Did not take diet yesterday, moderate on lunch today recorded. is not at bedside for collateral. Has slight weakness with left and pronator drift but does not hit the bed Difficulty swallowing, but is able to on command. CN ii-xii otherwise normal. Had reported drooling earlier- none noted on my exam. Mr. Noel states he eats a regular diet at home and does not have trouble with food. Does take pills 1-2 at a time. Finger to nose is normal bilaterally. Slight tremor noted. Attempting to get collateral, but there is concern for new dysphagia after fall and surgery. Given I am unable to obtain further from patients , reference home diet tolerance, and reportedly handled some food earlier this hospitalization, will get CT stroke protocol. However the timeframe just excludes Mr. Noel from TPA now, aside from a recent surgery. Renal function preserved today, can get contrast as needed.
--- NOTE | 2018-09-07 17:16 | CT ---
CTA OF THE HEAD WITHOUT AND WITH CONTRAST CTA OF THE NECK WITH CONTRAST 09/07/18 HISTORY: Left sided weakness with concern for stroke, dysphagia. COMPARISON: CT brain 08/30/18. TECHNIQUE: 1. Multiple contiguous axial images were obtained in a CTA of the head without and with contrast . 3D sagittal and coronal MIP reformats were performed. 2. Multiple contiguous axial images were obtained in a CTA of the neck with contrast. 3D sagitt al and coronal MIP reformats were performed. FINDINGS: CTA NECK: Calcified lymph nodes are seen in the left hilar region of the lungs. The lung apices are otherwise u nremarkable. Degenerative changes are seen in the spine. The cervical soft tissues are unremarkable. No mucosal abnormality is seen in the neck. The paranasal sinuses are well aerated. The common carotid arteries have a normal origin from the aortic arch. Minimal atherosclerotic diseas e is seen in the proximal aspect of the internal carotid arteries. The external carotid arteries are patent. No significant stenosis per NASCET criteria is seen of either internal carotid artery. Both vertebral arteries are patent. The right vertebral artery is dominant. No significant irregulari ty is seen within the neck of the vertebral bodies to suggest atherosclerotic disease in the neck. CTA HEAD: The cavernous portion of both internal carotid arteries demonstrates moderate nonfocal diffuse athero sclerotic disease. The intracranial internal carotid arteries branch into normal caliber anterior and middle cerebral arteries. There is no evidence of focal stenosis, occlusion, or aneurysmal dilatatio n in the anterior circulation. The left vertebral artery ends in a PICA branch. The right vertebral artery supplies the basilar racheal ry. There are bilateral posterior communicating arteries. The posterior cerebral arteries and cerebel lar arteries are patent. There is no evidence of focal stenosis, occlusions, or aneurysmal dilatation in the posterior circulation. There is mild to moderate nonfocal atherosclerotic disease in the right vertebral artery before it be comes the basilar artery. There are scattered hypodensities in the subcortical and periventricular white matter, likely seconda ry to small vessel ischemic disease. No abnormal intracranial enhancement is seen. IMPRESSION: 1. No significant carotid abnormality in the neck. 2. Nonfocal diffuse atherosclerotic disease in the cavernous portion of both internal carotid arterie s. 3. No CTA evidence of occlusion in the head. 4. Moderate nonfocal atherosclerotic disease in the right intracranial vertebral artery. POS: [facility]
[2018-09-07] MEDS ORDERED: Insulin Regular 300 UNITS/3 ML VIAL ONE (20:21)
[2018-09-07] MEDS: Donepezil HCl 10 MG TAB PO SCH (21:59)
[2018-09-08] MEDS: Acetaminophen 500 MG TAB PO SCH ×6 (01:07→20:19)
[2018-09-08] MEDS ORDERED: Magnesium 2 GM/50 ML 2 GM in Premix Bag 1 BAG IVPB SCH (08:00)
[2018-09-08 08:15] LABS: #Eosinphils 0.3 thou/uL (0.0-0.7); #Monocytes 1.1 thou/uL (0.11-0.59); #Neutrophils 6.1 thou/uL (1.40-6.50); %Basophils 0.5 % (0.0-1.0); %Eosinophils 3.1 % (0.0-10.0); %Lymphocytes 28.1 % (21.0-51.0); %Monocytes 10.9 % (0.0-10.0); %Neutrophils 57.5 % (42.0-75.0); Hemoglobin 11.6 g/dL (14.0-18.0); Mean Corpuscular HGB CONC 33.8 g/dL (32.0-36.0); Mean Corpuscular Hemoglobin 31.8 pg (27.0-31.0); Mean Platelet Volume 10.2 fL (7.4-10.4); Platelet Count 166 thou/uL (130-400); Red Blood Cell (RBC) Count 3.65 mill/uL (4.70-6.10); White Blood Cell (WBC) Count 10.5 thou/uL (4.8-10.8)
[2018-09-08 08:24] LABS: Anion Gap 13 mmol/L (10-20); BUN (Urea Nitrogen) 12 mg/dL (8.4-25.7); Calc. Creatinine Clearance 108 mL/min (70-130); Calcium 8.7 mg/dL (7.8-10.44); Carbon Dioxide 24 mmol/L (23-31); Chloride 101 mmol/L (98-107); Estimated GFR-MDRD Greater than 90; Glucose 85 mg/dL (83-110); Potassium 3.3 mmol/L (3.5-5.1); Sodium 135 mmol/L (136-145)
[2018-09-08] MEDS: Amlodipine 10 MG TAB PO SCH (10:40)
[2018-09-08] MEDS: Ibuprofen 600 MG TAB PO SCH ×3 (10:41→20:19)
[2018-09-08] MEDS: busPIRone HCl 10 MG TAB PO SCH ×3 (10:41→20:19)
[2018-09-08] MEDS: Lisinopril 10 MG TAB PO SCH (10:41)
[2018-09-08] MEDS: Aspirin 81 mg Enteric Coated Tablet PO SCH ×2 (10:42→20:19)
[2018-09-08] MEDS: Finasteride 5 MG TAB PO SCH (10:42)
[2018-09-08] MEDS: Calcium Carbonate 500 MG TAB PO SCH ×2 (10:42→10:58)
[2018-09-08] MEDS: Tamsulosin HCl 0.4 MG CAP PO SCH (10:42)
[2018-09-08] MEDS: Famotidine 20 MG TAB PO SCH ×3 (10:42→20:19)
[2018-09-08] MEDS ORDERED: Sodium Chloride 0.9% 500 ML IV SCH (10:45)
--- NOTE | 2018-09-08 19:50 | PRG ---
DATE OF SERVICE: 09/08/2018 SUBJECTIVE: Mr. Noel still seems to be demented and requiring 2 people max assist to get up, not working well with PT. He is unable to really produce anything on IS for me, is presently confused. However, he has been approved for rehab, they are waiting for his arrival. He still has a Styles catheter in place. No other changes are noted overnight other than low urine output and poor p.o. intake. OBJECTIVE: VITAL SIGNS: Today, blood pressure is 118/77, heart rate is 81, temperature is 98.1, saturating 92% on 3 L nasal cannula, and breathing 14 times per minute. GENERAL: This is an 82-year-old male, lying in bed, pleasantly demented. HEENT: Normocephalic and atraumatic. NECK: Trachea is midline. No JVD. RESPIRATORY: Equal rise and fall. Bilateral breath sounds. Clear to auscultation in upper and lower bilaterally. CARDIOVASCULAR: Regular rate and rhythm. ABDOMEN: Soft and nontender. PELVIS: Stable. Surgical site intact and dry. Styles with yellow urine is noted that is cloudy. MUSCULOSKELETAL: Moves extremities. NEUROLOGIC: Pleasantly confused. SKIN: [place], warm, and dry. LABORATORY DATA: From today; white blood cell count of 10.5, platelets are 166, hemoglobin and hematocrit of 11.6 and 34.3 respectively. Chemistry; sodium is 135, potassium 3.3, chloride is 101, CO2 is 24, creatinine is 0.68, and BUN is 12. ASSESSMENT: 1. Left intertrochanteric hip fracture, status post open reduction and internal fixation. 2. Acute traumatic pain. 3. History of hypertension. 4. Dysphagia. 5. Altered mental status likely secondary to dementia versus delirium. PLAN: 1. We will remove the Styles catheter today. 2. Check UA for infectious etiology, straight cath as needed. 3. 500 mL bolus now, then TKO, and encourage oral fluids. 4. Encourage working with PT. 5. Electrolyte replacement protocol as needed. 6. Pain control as needed. 7. We will likely discharge to skill nursing versus rehab facility, they wanted to reevaluate today. PT to see how patient did to see if he was able to go to traditional rehab versus a nursing facility. Family is still adamant about wanting to go to rehab. At the time of this dictation, I am still waiting on the results of the UA and put in for a straight cath, we will follow up on the same. 8. Continue all other supportive care. Job ID: [id number]
[2018-09-08] MEDS: Donepezil HCl 10 MG TAB PO SCH (20:19)
--- NOTE | 2018-09-08 20:53 | OP ---
DATE OF PROCEDURE: 09/05/2018 PREOPERATIVE DIAGNOSIS: Left intertrochanteric femur fracture. POSTOPERATIVE DIAGNOSIS: Left intertrochanteric femur fracture. PROCEDURE PERFORMED: DHS to left intertrochanteric femur fracture. ANESTHESIA: General. ESTIMATED BLOOD LOSS: Less than 100 mL. IMPLANT: Synthes DHS 3-hole 135-degree sideplate with 95 mm hip screw. COMPLICATIONS: None. DRAINS: None. SPECIMEN: None. OUTCOME: Near-anatomic alignment. INDICATIONS: The patient is an 82-year-old gentleman, status post ground level fall sustaining a left intertrochanteric femur fracture. After discussion with the patient and his family including risks and benefits, we decided to proceed with surgical intervention with placement of the DHS. Informed consent has been obtained. I believe all questions answered. DESCRIPTION OF PROCEDURE: The patient was brought to the operating room and a time-out performed followed by induction of general anesthesia. The patient was then positioned on the fracture table with the injured extremity held in longitudinal traction and slight internal rotation. The leg was also held in a straightened position and scissored to allow for AP lateral imaging of the affected left hip. A sterile prep and drape was then performed in the left lateral thigh. Under C-arm localization, a lateral skin incision was made after skin was sharply incised. Dissection was carried down bluntly to the underlying tensor fascia and fascia jennifer. This structure was incised in line with the skin incision and reflected anteriorly and posteriorly. The fascia overlying the vastus lateralis was incised in line with the skin incision and then the muscle belly was swept off the posterior leaflet of the fascia and then reflected anteriorly, gaining access to the lateral cortex of the femur. With the 135 degree jig, a threaded guidewire was passed from the lateral cortex of the femur up the femoral neck into the femoral head in a near center-center position. Once appropriately positioned, measurement of the pin was performed. The step drill was passed over this guidewire to further prepare the femoral neck and head for screw placement. The 135 degree 3-hole sideplate with 95 mm hip screw was inserted into the wound. The hip screw was screwed up to the neck and into the femoral head under C-arm guidance. The plate was then placed along the lateral cortex of the proximal femur. The guidewire was then removed and then a total of three 4.5 mm cortical screws were passed through the plate and into the femur, affixing the plate to the proximal femur. At the completion of this, AP lateral C-arm images were obtained that showed anatomic alignment of the fracture and appropriately positioned hardware. The wound was thoroughly irrigated with normal saline. The tensor fascia was reapproximated with 0 Vicryl followed by 2-0 Vicryl subcutaneously and then martir for the skin. Xeroform gauze and tape dressing was applied to the lateral thigh. The patient was then transferred to recovery room in stable condition. There were no complications and he tolerated the procedure well. Job ID: [id number]
[2018-09-08 22:45] LABS: Bilirubin Small (Negative); Blood, Urine Negative (Negative); Clarity CLEAR (Clear); Glucose, Urine (Dipstick) Negative (Negative); Leukocyte Trace (Negative); Nitrite Negative (Negative); Protein, Urine (Dipstick) Negative (Neg-Trace); Specific Gravity, Urine 1.026 (1.002-1.036); pH, Urine 5.5 (5.0-9.0)
[2018-09-08 22:46] LABS: Bacteria/HPF None Seen HPF (None Seen); Hyaline Casts/LPF 0-3 HYALINE CAST LPF (0-3 Hyaline); Pathc Cast-AUWi Flag 0.29 (0-2.49); RBC/HPF 0-3 HPF (0-3); Squamous Epithelial 0-3 HPF (0-3); Yeast-AUWi Flag 15.2 (0-25.0)
[2018-09-09] MEDS: Acetaminophen 500 MG TAB PO SCH ×3 (01:03→18:10)
[2018-09-09 06:47] LABS: #Basophils 0.1 thou/uL (0.0-0.2); #Eosinphils 0.4 thou/uL (0.0-0.7); #Lymphocytes 2.4 thou/uL (1.20-3.40); #Neutrophils 5.5 thou/uL (1.40-6.50); %Basophils 0.7 % (0.0-1.0); %Eosinophils 4.1 % (0.0-10.0); %Monocytes 10.4 % (0.0-10.0); %Neutrophils 58.8 % (42.0-75.0); Hemoglobin 11.5 g/dL (14.0-18.0); Mean Corpuscular HGB CONC 34.7 g/dL (32.0-36.0); Mean Corpuscular Hemoglobin 32.8 pg (27.0-31.0); Mean Corpuscular Volume 94.4 fL (78.0-98.0); Mean Platelet Volume 8.8 fL (7.4-10.4); Platelet Count 184 thou/uL (130-400); RBC Distribution Width 11.8 % (11.5-14.5); Red Blood Cell (RBC) Count 3.52 mill/uL (4.70-6.10); White Blood Cell (WBC) Count 9.4 thou/uL (4.8-10.8)
[2018-09-09 07:09] LABS: Anion Gap 12 mmol/L (10-20); BUN (Urea Nitrogen) 11 mg/dL (8.4-25.7); Calc. Creatinine Clearance 102 mL/min (70-130); Calcium 8.7 mg/dL (7.8-10.44); Carbon Dioxide 27 mmol/L (23-31); Chloride 100 mmol/L (98-107); Estimated GFR-MDRD Greater than 90; Glucose 88 mg/dL (83-110); Magnesium 1.7 mg/dL (1.6-2.6); Potassium 3.2 mmol/L (3.5-5.1); Sodium 136 mmol/L (136-145)
[2018-09-09] MEDS: Aspirin 81 mg Enteric Coated Tablet PO SCH (09:03)
[2018-09-09] MEDS: Ibuprofen 600 MG TAB PO SCH ×2 (09:03→15:48)
[2018-09-09] MEDS: Finasteride 5 MG TAB PO SCH (09:03)
[2018-09-09] MEDS: Famotidine 20 MG TAB PO SCH (09:03)
[2018-09-09] MEDS: Tamsulosin HCl 0.4 MG CAP PO SCH (09:03)
[2018-09-09] MEDS: Amlodipine 10 MG TAB PO SCH (09:04)
[2018-09-09] MEDS: Calcium Carbonate 500 MG TAB PO SCH (09:04)
[2018-09-09] MEDS: Lisinopril 10 MG TAB PO SCH (09:05)
[2018-09-09] MEDS: busPIRone HCl 10 MG TAB PO SCH ×2 (09:06→15:03)
[2018-09-09] MEDS ORDERED: Magnesium 2 GM/50 ML 2 GM in Premix Bag 1 BAG IVPB SCH (10:30)
[2018-09-09] MEDS ORDERED: Potassium Chloride 40 MEQ in Sodium Chloride 0.9% 250 ML 250 ML IVPB SCH (11:00)
--- NOTE | 2018-09-09 15:15 | PQF ---
DATE: 09-09-18 ATTN: CT RUSHING Please exercise your independent, professional judgment in responding to the clarification form. Clinical indicators are provided on the bottom of this form for your review Please check appropriate box(s) to clarify if the following diagnosis has been ruled in or ruled out: PUBIC SYMPHYSIS FRACTURE [ ] Ruled in diagnosis [ ] Continue to treat [ ] Resolved [ x ] Ruled out diagnosis [ ] Other diagnosis [ ] Unable to determine In addition, please specify: Present on Admission (POA): [ ] Yes [ x] No [ ] Unable to determine For continuity of documentation, please document condition throughout progress notes and discharge summary. Thank You. CLINICAL INDICATORS - SIGNS / SYMPTOMS / LABS H&P: ASSESSMENT: S/P GROUND LEVEL FALL, LEFT INTERTROCHANTERIC HIP FRACTURE, QUESTIONABLE PUBIC SYMPHYSIS FRACTURE PELVIS X-RAY 09-05-18: IMPRESSION: NO DISPLACED LEFT OBTURATOR RING FRACTURE IS APPRECIATED RISK FACTORS: H&P: ASSESSMENT: S/P GROUND LEVEL FALL, LEFT INTERTROCHANTERIC HIP FRACTURE, QUESTIONABLE PUBIC SYMPHYSIS FRACTURE TREATMENTS: PELVIS X-RAY 09-05-18: ORTHO CONSULT/SURGERY (This form is maintained as a part of the permanent medical record) 2014 [employer]. All Rights Reserved [email or web address] Office: [phone] JENNIFER
[2018-09-09 20:11] VITALS: BP 143/87; TEMP 98.4
[2018-09-10] MEDS ORDERED: Senokot 8.6 MG TAB PO SCH (09:00)
== END 2018-09-09 20:06 | DRG 482 ==
LOC: ERS 09:06 → SURG B 10:26
PROVIDERS: ADMIT Surgery; ATTEND Surgery
PROC: 0QS704Z Reposition Left Upper Femur with Internal Fixation Device, Open Approach (ICD-10-PCS; principal; 2018-09-05)
DX: S72.142A Displaced intertrochanteric fracture of left femur, initial encounter for closed fracture (principal); W18.30XA Fall on same level, unspecified, initial encounter; I10 Essential (primary) hypertension; R13.10 Dysphagia, unspecified
CPT/HCPCS: 36415; 70496; 70498; 71045; 72170; 76001; 80048; 80053; 81003; 81015; 83735; 85025; 85610; 85730; 86850; 86900; 86901; 87086; 93005; 94760; 96361; 96374; 96375; 96376; C1713; C1769; G8978-GP-CM; G8979-GP-CK; G8987-GO-CM; G8988-GO-CK; G8996-GN-CK; G8997-GN-CI; J0131; J1815; J1885; J2270; J2405; J2704; J3010; J3480; J3490; J7050

== ENCOUNTER 2019-03-02 11:08 | Outpatient (CLI) | payer MEDICARE, BC ==
--- NOTE | 2019-03-02 11:49 | RAD ---
CHEST 2 VIEWS: Date: 03/02/19 HISTORY: Pneumonitis. Follow-up. COMPARISON: 02/16/19. FINDINGS: Cardiac silhouette is unremarkable. Right hemidiaphragm remains elevated. Pulmonary vasculature upper limits of normal. Linear interstitial prominence at the left base is similar to prior exams dating b ack to 09/05/18. Mediastinum is midline with aortic calcification. IMPRESSION: Borderline pulmonary vascular prominence, right hemidiaphragm elevation, and other findings are stabl e. POS: [facility]
--- NOTE | 2019-03-02 12:15 | RAD ---
LEFT RIBS 2 VIEWS: Date: 03/02/19 HISTORY: Pneumonitis, left rib pain without known injury. FINDINGS: Minimally displaced fracture involving the left 11th rib and probable nondisplaced fracture of the le ft 10th rib. No pneumothorax or pleural effusion. Old granulomatous disease. IMPRESSION: Minimally displaced left rib fracture which appears to be the 11th rib and possibly nondisplaced frac ture of the left 10th rib laterally. No pneumothorax or pleural effusion. POS: [facility]
== END 2019-03-02 11:09 | disposition home or self-care (01) ==
LOC: BICRAD 11:08
PROVIDERS: ATTEND Family Medicine
DX: J18.9 Pneumonia, unspecified organism (principal); R07.81 Pleurodynia; S22.32XA Fracture of one rib, left side, initial encounter for closed fracture; I70.0 Atherosclerosis of aorta
CPT/HCPCS: 71046

== ENCOUNTER 2019-06-05 13:16 | Emergency (ER) | payer MEDICARE, BC ==
[2019-06-05 13:48] LABS: #Basophils 0.1 thou/uL (0.0-0.2); #Eosinphils 0.2 thou/uL (0.0-0.7); #Lymphocytes 2.8 thou/uL (1.20-3.40); #Monocytes 0.8 thou/uL (0.11-0.59); #Neutrophils 6.3 thou/uL (1.40-6.50); %Basophils 1.1 % (0.0-1.0); %Eosinophils 1.6 % (0.0-10.0); %Lymphocytes 27.7 % (21.0-51.0); %Monocytes 7.9 % (0.0-10.0); %Neutrophils 61.7 % (42.0-75.0); Hemoglobin 14.8 g/dL (14.0-18.0); Mean Corpuscular HGB CONC 32.3 g/dL (32.0-36.0); Mean Corpuscular Hemoglobin 29.3 pg (27.0-31.0); Mean Corpuscular Volume 90.7 fL (78.0-98.0); Platelet Count 224 thou/uL (130-400); RBC Distribution Width 13.4 % (11.5-14.5); Red Blood Cell (RBC) Count 5.06 mill/uL (4.70-6.10); White Blood Cell (WBC) Count 10.2 thou/uL (4.8-10.8)
--- NOTE | 2019-06-05 13:48 | RAD ---
XR Chest 1 View Portable HISTORY: Cough COMPARISON: 09/16/2018 FINDINGS: The heart size is normal. The lungs are without focal areas of consolidation, pneumothorax or pleural effusions. There is continued elevation the right hemidiaphragm IMPRESSION: No radiographic evidence of acute cardiopulmonary process.
[2019-06-05 14:02] LABS: ALT (SGPT) 15 U/L (8-55); AST (SGOT) 22 U/L (5-34); Albumin 4.4 g/dL (3.4-4.8); Alkaline Phosphatase 93 U/L (40-150); Anion Gap 18 mmol/L (10-20); BUN (Urea Nitrogen) 10 mg/dL (8.4-25.7); Bilirubin, Total 0.7 mg/dL (0.2-1.2); Calc. Creatinine Clearance 0 mL/min (70-130); Calcium 9.9 mg/dL (7.8-10.44); Carbon Dioxide 24 mmol/L (23-31); Chloride 102 mmol/L (98-107); Estimated GFR-MDRD 78; Globulin 3.9 g/dL (2.4-3.5); Glucose 81 mg/dL (83-110); Protein, Total 8.3 g/dL (5.8-8.1); Sodium 140 mmol/L (136-145)
[2019-06-05 14:06] LABS: Bilirubin Negative (Negative); Blood, Urine Negative (Negative); Clarity Clear (Clear); Glucose, Urine (Dipstick) Negative (Negative); Leukocyte Negative (Negative); Nitrite Negative (Negative); Protein, Urine (Dipstick) Negative (Neg-Trace); Urobilinogen 0.2 mg/dL (Less than 2)
--- NOTE | 2019-06-05 14:47 | CT ---
CT Abdomen Pelvis WO Con 06/05/2019 1:56 PM HISTORY: Bilateral lower abdominal pain for 8 days. COMPARISON: 08/24/2018 Technique: Multiple contiguous axial CT images are obtained through the abdomen and pelvis without IV contrast. Coronal reformats are provided. FINDINGS: This examination is limited for the evaluation of solid organs and vascular structures due to the lac k of intravenous contrast. Lower Chest: Calcified left hilar lymph node is again seen. There is persistent elevation of the righ t hemidiaphragm with atelectasis at the right lung base. There is dependent atelectasis at the left lung base. Abdomen: Liver: Grossly normal nonenhanced CT appearance. Gallbladder: Surgically absent. Pancreas: Grossly normal nonenhanced CT appearance. Spleen: Splenic granulomata present. Adrenals: Grossly normal nonenhanced CT appearance. Kidneys: No renal calculi are visualized, and there is no evidence of hydronephrosis. Ureters: No ureteral calculus is seen.. Pelvis: Urinary bladder: within normal limits. Reproductive Organs: No pelvic masses. Lymph Nodes: No enlarged lymph nodes. Bowel: Colonic diverticulosis is present. Loops of small bowel are normal in caliber. Appendix: The appendix is normal in caliber. Peritoneum: No free fluid, free air, or fluid collection. Retroperitoneum: within normal limits. Vessels: Vascular calcifications are identified.. Abdominal Wall: Fat-containing left inguinal hernia is present. Bones: Postsurgical changes left hip are seen. Degenerative changes are seen in the spine. IMPRESSION: 1. No renal or ureteral calculi are seen bilaterally. 2. No acute findings are seen on this nonenhanced CT abdomen and pelvis. 3. Postcholecystectomy changes. 4. Stable elevation right hemidiaphragm with volume loss at the right lung base. 5. Colonic diverticulosis.
== END 2019-06-05 15:20 | disposition home or self-care (01) ==
LOC: SCSER 13:16
DX: R10.31 Right lower quadrant pain (principal); R10.814 Left lower quadrant abdominal tenderness; F03.90 Unspecified dementia, unspecified severity, without behavioral disturbance, psychotic disturbance, mood disturbance, and anxiety; E03.9 Hypothyroidism, unspecified; K21.9 Gastro-esophageal reflux disease without esophagitis; I10 Essential (primary) hypertension; N40.0 Benign prostatic hyperplasia without lower urinary tract symptoms; D64.9 Anemia, unspecified; F31.9 Bipolar disorder, unspecified; Z79.899 Other long term (current) drug therapy
CPT/HCPCS: 71045; 74176; 80053; 81003; 83605; 83690; 85025; 93005